=== PATIENT | female | born 1980 | race Two or more races ===

== ENCOUNTER 2023-03-25 17:19 | Emergency (ER) | payer MEDICAID, OTHER | END 2023-03-25 21:03 | disposition left against medical advice (07) | LOC: ER 17:19 | DX: H57.9 Unspecified disorder of eye and adnexa (principal); Z53.21 Procedure and treatment not carried out due to patient leaving prior to being seen by health care provider ==

== ENCOUNTER 2024-07-05 16:42 | Emergency (ER) | payer MEDICAID ==
[~2024-07-05] VITALS: Ht 167.6 cm; Wt 70.0 kg
[2024-07-05] MEDS: KETOROLAC TROMETH 30 MG/ML 1ML VIAL IM ONE (19:03)
[2024-07-05] MEDS ORDERED: CYCL-837 PO (21:57)
[2024-07-05 23:20] VITALS: BP 139/73; PULSE 85; RESP 18; TEMP 98.2; O2SAT 98
[2024-07-05] MEDS: diazePAM 5 MG TAB PO ONE (23:27)
== END 2024-07-05 23:38 | disposition home or self-care (01) ==
LOC: ER 16:42 → EDBD 16:42 → ER 23:38
DX: S32.019A Unspecified fracture of first lumbar vertebra, initial encounter for closed fracture (principal); Z88.6 Allergy status to analgesic agent; W18.09XA Striking against other object with subsequent fall, initial encounter; Y93.89 Activity, other specified; Y92.89 Other specified places as the place of occurrence of the external cause; Y99.8 Other external cause status
CPT/HCPCS: 72131; 96372; 99285; J1885

== ENCOUNTER 2025-10-07 02:00 | Emergency (ER) | payer MEDICAID ==
[~2025-10-07] VITALS: Ht 162.6 cm; Wt 87.4 kg
[~2025-10-07 02:00] MED LIST: CYCL-837 PO
--- NOTE | 2025-10-07 02:27 | ED.PDOC ---
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 Patient states she has been having vaginal bleeding since September 12, continuous and progressively worsened in the past 3 days, now associated with blood clots. Has not seen a band instrument maker regarding this issue. Denies being Past Medical History: Endometriosis Past Surgical History: , cervical procedure Social History: Denies hills: vag bleed. HPI: Poor Historian. REVIEW OF SYSTEMS: CONSTITUTIONAL: Denies acute: fever, diaphoresis, chills, generalized weakness. HEAD: Denies acute: headache, photophobia Eyes: Denies acute: Double vision, vision loss, eye pain, eye discharge. EARS: Denies acute: tinnitus, hearing loss, ear discharge, ear pain, THROAT: Denies acute: sore throat, swelling, difficulty swallowing , pain with swallo wing, change in voice. NECK: Denies acute: neck pain, neck swelling, stiff neck. HEART: Denies acute : chest pain, palpitations, LUNGS: Denies acute: SOB, wheezing, cough, hemoptysis ABDOMEN: Denies acute: abdominal pain, Nausea, Vomiting, diarrhea, melena , hematemesis, hematochezia SKIN: Denies acute: rash, redness, lesions, itchiness. EXTREMITIES: Denies acute: calf pain, numbness, tingling, weakness, denies pain in extremity. Denies acute: Low back pain. Neuro: Denies acute: focal neurological deficit, motor or sensory focal neurological deficit, tremors, seizure like activity, confusion, dizziness, change in mental status, loss of bowel or bladder function, cauda equina like symptoms. : Denies acute: dysuria, hematuria, flank pain, increase in urinary frequency. PSYCH: Denies acute: hallucination, suicidal ideation, homicidal ideation. FEMALE: Denies acute: foul odor, unusual discharge. PHYSICAL EXAM: General: -----mild---acute distress, awake and alert. Head: normocephalic, atraumatic. No raccoon's eyes, no jain sign. Neck: supple, trachea is midline, no swelling. Throat: Normal phonation. Eyes:, no erythema, no purulent discharge, no proptosis, no icterus. Heart: regular rate, regular rhythm, no significant murmur appreciated. Lungs: no apparent respiratory distress, Able to speak in full sentences. No wheezing, no rhonchi, no crackles. No stridors Clear to auscultation bilaterally. Abdomen: non tender to palpation, non distended, soft, no guarding, no rebound, + bowel sounds. Neuro: Awake, Alert, oriented to name, self, situation, follows commands GCS=15. Speech is normal. Skin: no petechia, no purpura, no cyanosis, non-pale, not jaundice. Lower extremities: --1/4 b/l - Pitting edema no deformity, no focal swelling, no calf TTP. Makes eye contact. moves all four extremities. Face: no apparent facial droop. Ambulating in the ED independently. ED COURSE: DISCLAIMER: This medical document was created using an electronic medical record system with voice recognition software and computerized dictation system. Although this document has been carefully reviewed, there might still be some phonetic and typographical errors. Occasional wrong-word or "sound-alike" substitutions may have occurred due to the inherent limitations of voice recognition software. These areas are purely typographical due to imperfections of the software programs and do not reflect any compromise in the patient's medical care. Please read the chart carefully and recognize, using context, where these substitutions have occurred. 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 Was a procedure done?: No Differential Diagnosis (INDUSTRIAL CAFETERIA MANAGER) Vaginal Bleeding: - Complete, - Incomplete, - Inevitable, - Missed, - Threatened, Abruptio Placentae, Blood Loss Anemia, Dysmenorrhea, Ectopic , Hormonal, Menorrhagia, Menometrorrhagia, Menstrual Bleeding, Myomatous Uterus, PID, Placenta Previa, Precipitous Hct, Trauma, UTI, Vaginitis, Other (Differential diagnosis includes but not limited to DU B, menorrhea, metromenorrhagia, neoplasm, coagulopathy,, trauma, miscarriage, placenta previa, placental abruption, ) X-Ray, Labs, Meds, VS Vital Signs Date Time Temp Pulse Resp B/P (MAP) Pulse Ox O2 Delivery O2 Flow Rate FiO2 10/07/25 04:27 98.1 75 18 134/83 (100) 100 98.1 10/07/25 02:01 97.4 82 16 122/78 97 97.4 Lab Test 10/07/25 05:20 10/07/25 02:54 10/07/25 02:44 Range/Units Hemoglobin 8.3 L 8.1 L 12.2-16.2 g/dL Hematocrit 26.4 L 27.1 L 36.0-46.0 % Urine Color Colorless Yellow Urine Clarity Clear Clear Urine pH 6.0 5.0-9.0 Urine Specific Jena 1.018 1.001-1.035 Urine Protein Negative Negative Urine Ketones Negative Negative Urine Blood 3+ H Negative /uL Urine Nitrite Negative Negative Urine Bilirubin Negative Negative Urine Urobilinogen Normal Negative mg/dL Urine Leukocyte Esterase Negative Negative /uL Urine RBC 359 0 - 4 /hpf Urine Microscopic WBC 2 0-5 /HPF Urine Squamous Epithelial Cells Few <5 /hpf Urine Bacteria None seen None Seen /hpf Urine Glucose Normal Normal mg/dL White Blood Count 8.4 4.4-10.8 10^3/uL Red Blood Count 4.25 4.0-5.20 10^6/uL Mean Corpuscular Volume 64.0 L 80.0-100.0 fL Mean Corpuscular Hemoglobin 19.2 L 28.0-32.0 pg Mean Corpuscular Hemoglobin Concent 30.0 L 32.0-36.0 g/dL Red Cell Distribution Width 20.2 H 11.8-14.3 % Platelet Count 282 140-450 10^3/uL Mean Platelet Volume 7.5 6.9-10.8 fL Neutrophils (%) (Auto) 60.3 37.0-80.0 % Lymphocytes (%) (Auto) 25.4 10.0-50.0 % Monocytes (%) (Auto) 9.1 0.0-12.0 % Eosinophils (%) (Auto) 4.2 0.0-7.0 % Basophils (%) (Auto) 1.0 0.0-2.0 % Neutrophils # (Auto) 5.1 1.6-8.6 10 ^3/uL Lymphocytes # (Auto) 2.1 0.4-5.4 10 ^3/uL Monocytes # (Auto) 0.8 0-1.3 10 ^3/uL Eosinophils # (Auto) 0.4 0-0.8 10 ^3/uL Basophils # (Auto) 0.1 0-0.2 10 ^3/uL Nucleated Red Blood Cells 0.0 % Platelet Estimate Adequate Hypochromasia (manual) Moderate Microcytosis Moderate Prothrombin Time 10.2 9.3-11.8 sec Prothrombin Time INR 0.96 0.9-1.15 Activated Partial Thromboplast Time 24.5 24.5-34.5 SEC Sodium Level 141 136-145 mmol/L Potassium Level 3.8 3.5-5.1 mmol/L Chloride Level 106 98-107 mmol/L Carbon Dioxide Level 28 20-31 mmol/L Anion Gap 7 5-15 Blood Urea Nitrogen 16 9-23 mg/dL Creatinine 0.83 0.550-1.02 mg/dL Glomerular Filtration Rate Calc 87 >90 mL/min BUN/Creatinine Ratio 19.3 10.0-20.0 Serum Glucose 89 74-106 mg/dL Calcium Level 8.9 8.7-10.4 mg/dL Total Bilirubin 0.3 0.2-1.0 mg/dL Aspartate Amino Transferase (AST) 13 13-40 U/L Alanine Aminotransferase (ALT) 22 7-40 U/L Alkaline Phosphatase 90 46-116 U/L Total Protein 6.8 5.7-8.2 g/dL Albumin 4.2 3.2-4.8 g/dL [address] [address] Ph: [phone] DIAGNOSTIC IMAGING Diagnostic Imaging Report : [id number] Signed PATIENT: ANUPAM HILLS ACCT: [id number] UNIT: [id number] : 1980 LOC: ER ROOM / BED: / AGE / SEX: 45 / F ADM STATUS: REG ER SERVICE 0213 ORDERING PHYSICIAN: ANDRESSA CARRIZALES DO PROCEDURE(s): PELUS - PELVIC REASON: vag bleed ORDER NUMBER(s): [id number], ACCESSION NUMBER(s): [id number] INDICATION: vag bleed TECHNIQUE: Multiple real-time grayscale transabdominal sonographic images along with color and duplex Doppler of the uterus and ovaries were obtained. COMPARISON: None FINDINGS: The uterus measures 10.4 x 5.3 x 6.8 cm. The endometrial stripe measures 0.5 cm. Right ovary measures 3.9 x 3.6 x 3.5 cm with normal Doppler color flow. Simple appearing cyst / follicle measuring 2.0 cm. Left ovary measures 0.1 x 1.3 x 2.1 cm with normal Doppler color flow IMPRESSION: Grossly unremarkable pelvic ultrasound. ATED BY: AWAIS LARA MD DICTATED DATE/TIME: 10/07/25244 SIGNED BY: AWAIS LARA MD SIGNED DATE/TIME: 10/07/25244 CC: Time of 1ST Reevaluation: 02:24 Reevaluation 1ST: Unchanged Patient Education/Counseling: Diagnosis, Treatment Family Education/Counseling: No Family Present Comments MDM: patient presented with the above HPI.------workup was initiated. patient was found with the above mentioned diagnosis. the following medications were ordered: please refer to order lists of meds and tests obtained by myself Dr. Carrizales. Patient ED course and VS have been stabilized. Patient has been reassessed in the ED and remained in a stable condition. Pertinent incidental findings were discussed with the patient and/or family. Patient/family voices understanding and is agreeable with plan. Patient has been observed in the ED adequate length of time to insure im provement/stability. Escalation of care considered: Consideration of escalation to observation or admission Serial H&Hs were obtained after fluid resuscitation. Patient's hemoglobin level is stable does not meet criteria for transfusion yet. Patient was DISCHARGED home in a stable condition. All the reports of any imaging studies that were ordered by myself were reviewed by myself. Departure 1 Departure Time of Disposition: 05:46 Impression: Primary Impression: Dysfunctional uterine bleeding Additional Impressions: Vaginal bleeding Anemia Disposition: 01 HOME / SELF CARE / HOMELESS Condition: Stable Additional Instructions: Additional instructions: Please read all instructions provided in this packet carefully. You MUST follow-up with your primary care/family doctor in 1 to 2 days. If you are unable to see your primary care/family doctor, please return to our emergency room for re-assessment and re-evaluation in 1 to 2 days. Return to the emergency room here in our facility or to the nearest ER [facility] if your symptoms change or worsen. CONSULTATIONS: you MUST Follow-up for consultation as soon as possible with: Dr.-OB Murillo in 1-2 days. Please call for appointment. You MUST call the consultants office yourself to make an appointment. You may need to arrange that through your insurance and/or your primary/family doctor. If you are unable to see the customer care consultant in 1 to 2 days, you must return to our emergency room (or any other ER of your choice) for re-assessment and re- evaluation. Adequate fluid hydration. Although you have been discharged from the Emergency Department, this does not mean that you have a "clean bill of health". No definitive diagnosis for your symptoms has been made today. It is possible that you are in the process of developing a serious illness. This is why you must return to the ED without fail if any new or worsening symptoms develop. Take daily iron supplements [id number]. Repeat CBC in 48-72 hours. Below is a copy of your radiological report for follow up: [place] [address] Ph: [phone] DIAGNOSTIC IMAGING Diagnostic Imaging Report : [id number] Signed PATIENT: ANUPAM HILLS ACCT: [id number] UNIT: [id number] : 1980 LOC: ER ROOM / BED: / AGE / SEX: 45 / F ADM STATUS: REG ER SERVICE 0213 ORDERING PHYSICIAN: ANDRESSA CARRIZALES DO PROCEDURE(s): PELUS - PELVIC REASON: vag bleed ORDER NUMBER(s): [id number], ACCESSION NUMBER(s): [id number] INDICATION: vag bleed TECHNIQUE: Multiple real-time grayscale transabdominal sonographic images along with color and duplex Doppler of the uterus and ovaries were obtained. COMPARISON: None FINDINGS: The uterus measures 10.4 x 5.3 x 6.8 cm. The endometrial stripe measures 0.5 cm. Right ovary measures 3.9 x 3.6 x 3.5 cm with normal Doppler color flow. Simple appearing cyst / follicle measuring 2.0 cm. Left ovary measures 0.1 x 1.3 x 2.1 cm with normal Doppler color flow IMPRESSION: Grossly unremarkable pelvic ultrasound. ATED BY: AWAIS LARA MD DICTATED DATE/TIME: 10/07/25244 SIGNED BY: AWAIS LARA MD SIGNED DATE/TIME: 10/07/25244 CC: Discharged With: Self Critical Care Note Critical Care Time?: No I personally scribed for ANDRESSA CARRIZALES DO ([email or web address]) on 10/07/25 at 02:27. Electronically submitted by Austin Davis ([facility]). I personally scribed for ANDRESSA CARRIZALES DO ([email or web address]) on 10/07/25 at 03:23. Electronically submitted by Austin Davis ([email or web address]). ANDRESSA CARRIZALES DO Oct 07, 2025 02:27
--- NOTE | 2025-10-07 02:48 | DVH ---
INDICATION: vag bleed TECHNIQUE: Multiple real-time grayscale transabdominal sonographic images along with color and duplex Doppler of the uterus and ovaries were obtained. COMPARISON: None FINDINGS: The uterus measures 10.4 x 5.3 x 6.8 cm. The endometrial stripe measures 0.5 cm. Right ovary measures 3.9 x 3.6 x 3.5 cm with normal Doppler color flow. Simple appearing cyst / follicle measuring 2.0 cm. Left ovary measures 0.1 x 1.3 x 2.1 cm with normal Doppler color flow IMPRESSION: Grossly unremarkable pelvic ultrasound.
[2025-10-07 02:55] LABS: Hemoglobin 8.1 g/dL (12.2-16.2)
[2025-10-07 02:57] LABS: Hematocrit 27.1 % (36.0-46.0); Mean Corpuscular Hemoglobin 19.2 pg (28.0-32.0); Mean Corpuscular Volume 64.0 fL (80.0-100.0); Nucleated Red Blood Cells % 0.0 %
[2025-10-07] MEDS: SODIUM CHLORIDE 0.9% 1,000 ML IV ONE (03:00)
[2025-10-07 03:01] LABS: Urine Protein, UAD Negative (Negative)
[2025-10-07 03:09] LABS: Alanine Aminotransferase 22 U/L (7-40); Albumin 4.2 g/dL (3.2-4.8); Alkaline Phosphatase 90 U/L (46-116); Anion Gap 7 (5-15); BUN/Creatinine Ratio 19.3 (10.0-20.0); Blood Urea Nitrogen 16 mg/dL (9-23); Calcium 8.9 mg/dL (8.7-10.4); Carbon Dioxide 28 mmol/L (20-31); Chloride 106 mmol/L (98-107); Glucose 89 mg/dL (74-106); Potassium 3.8 mmol/L (3.5-5.1); Sodium 141 mmol/L (136-145); Total Protein 6.8 g/dL (5.7-8.2)
[2025-10-07 03:10] LABS: Bilirubin, Total 0.3 mg/dL (0.2-1.0); INR 0.96 (0.9-1.15); Partial Thromboplastin Time 24.5 SEC (24.5-34.5); Prothrombin Time 10.2 sec (9.3-11.8)
[2025-10-07 04:27] VITALS: BP 134/83; PULSE 75; RESP 18; TEMP 98.1; O2SAT 100
[2025-10-07 05:39] LABS: Hematocrit 26.4 % (36.0-46.0); Hemoglobin 8.3 g/dL (12.2-16.2)
== END 2025-10-07 06:11 | disposition home or self-care (01) ==
LOC: ER 02:00
DX: N93.8 Other specified abnormal uterine and vaginal bleeding (principal); D64.9 Anemia, unspecified; Z86.018 Personal history of other benign neoplasm; Z87.440 Personal history of urinary (tract) infections; Z98.890 Other specified postprocedural states; Z79.899 Other long term (current) drug therapy; Z87.59 Personal history of other complications of pregnancy, childbirth and the puerperium; Z88.5 Allergy status to narcotic agent
CPT/HCPCS: 36415; 76856; 80053; 81001; 85014; 85018; 85025; 85610; 85730; 86850; 86900; 86901; 96360; 99284; J7030

== ENCOUNTER 2025-10-09 02:25 | Emergency (ER) | payer MEDICAID ==
[~2025-10-09] VITALS: Ht 162.6 cm; Wt 88.7 kg
[2025-10-09] MEDS ORDERED: MEDR5TAB28 PO (02:45)
--- NOTE | 2025-10-09 02:53 | ED.PDOC ---
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 Patient endorses on ongoing bleeding since initial, unprovoked onset on 09/12/2025. She reports bleeding getting heavier, significantly, following 10/03/2025. She was evaluated for symptoms on 10/07/2025 at [facility]. Patient's workup done then were benign, with the exception of her being anemic but not enough to warrant blood transfusion. Significant history of endometriosis and C-sections. Family history of diabetes and cancer. Patient denies any social history. She denies any abdominal pain, urinary problems, lightheadedness, weakness, or further acute symptoms. Chief Complaint: Vaginal Bleed Time Seen by MD: 02:30 Reviewed Notes: Nurses Notes, Medications, Allergies Allergies: Coded Allergies: Codeine (Verified Allergy, Unknown, 07/05/24) Penicillins (Verified Allergy, Unknown, 10/09/25) Home Meds Active Scripts Medroxyprogesterone Acetate (PROVERA) 5 Mg Tab, 2 TAB PO DAILY for 10 Days, #20 TAB 11 Refills Prov:MOLLY CORONADO MD 10/09/25 Cyclobenzaprine Hcl (Cyclobenzaprine Hcl) 5 Mg Tab, 1 TAB PO TID PRN, #30 TAB Prov:AV BLAIR 07/05/24 Information Source: Patient Mode of Arrival: Ambulatory Timing: Weeks Prehospital treatment: Other (See HPI) Severity: Moderate Vaginal Lesions: None Bleeding Quality: Bright Red Vaginal Mass: None Onset Of Mass/Bleeding: Spontaneous Associated Signs and Symptoms: None Past Medical History PAST MEDICAL HISTORY: Denies 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 Family History Family History: No family hx of Heart maicol, No family hx of HTN, No family hx ofKidney maicol, No family hx of Liver maicol, No family hx of Lung maicol, No family hx of Stroke, Family hx of DM, Family hx of Cancer Social History Smoker: Non-Smoker Alcohol: Denies ETOH Use Drugs: Denies Drug Use Lives In: Home Constitutional: denies: chills, diaphoresis, fatigue, fever, malaise, sweats, weakness, others EENTM: denies: blurred vision, double vision, ear bleeding, ear discharge, ear drainage, ear pain, ear ringing, eye pain, eye redness, hearing loss, mouth pain, mouth swelling, nasal discharge, nose bleeding, nose congestion, nose pain, photophobia, tearing, throat pain, throat swelling, voice changes, others Respiratory: denies: cough, hemoptysis, orthopnea, SOB at rest, shortness of breath, SOB with excertion, stridor, wheezing, others Cardiovascular: denies: chest pain, dizzy spells, diaphoresis, Dyspnea on exertion, edema, irregular heart beat, left arm pain, lightheadedness, palpitations, PND, syncope, others Gastrointestinal: denies: abdomen distended, abdominal pain, blood streaked bowels, constipated, diarrhea, dysphagia, difficulty swallowing, hematemesis, melena, nausea, poor appetite, poor fluid intake, rectal bleeding, rectal pain, vomiting, others Genitourinary: reports: abnormal vagina bleeding; denies: burning, dyspareunia, dysuria, flank pain, frequency, hematuria, incontinence, pain, , vagina discharge, urgency, others Neurological: denies: dizziness, fainting, headache, left sided numbness, left sided weakness, numbness, paresthesia, pre-existing deficit, right sided numbness, right sided weakness, seizure, speech problems, tingling, tremors, weakness, others Musculoskeletal: denies: back pain, gout, joint pain, joint swelling, muscle pain, muscle stiffness, neck pain, others Integumetry: denies: bruises, change in color, change in hair/nails, dryness, laceration, lesions, lumps, rash, wounds, others Allergic/Immunocompromised: denies: Difficulty Healing, Frequent Infections, Hives, Itching, others Hematologic/Lymphatic: denies: anemia, blood clots, easy bleeding, easy bruising, swollen glands, others Endocrine: denies: excessive hunger, excessive sweating, excessive thirst, excessive urination, flushing, intolerance to cold, intolerance to heat, unexplained weight gain, unexplained weight loss, others Psychiatric: denies: anxiety, bipolar disorder, depression, hopeless, panic disorder, schizophrenia, sleepless, suicidal, others All Other Systems: Reviewed and Negative Physical Exam General Appearance: Moderate Distress HEENT: Pale Conjuntivae (L), Pale Conjuntivae (R), Pharynx Normal, TMs Normal Neck: Full Range of Motion, Non-Tender, Normal, Normal Inspection Respiratory: Chest Non-Tender, Lungs Clear, No Accessory Muscle Use, No Respiratory Distress, Normal Breath Sounds Cardiovascular: No Edema, No JVD, No Murmur, No Gallop, Normal Peripheral Pulses, Regular Rate/Rhythm Breast Exam: Deferred Gastrointestinal: No Organomegaly, Non Tender, No Pulsatile Mass, Normal Bowel Sounds, Soft Genitalia: Deferred Pelvic: Deferred Rectal: Deferred Extremities: No calf tenderness, Normal capillary refill, Normal inspection, Normal range of motion, Non-tender, No pedal edema Musculoskeletal : Apperance: Normal Neurologic: Alert, post acute care nurse II-XII nml as Tested, No Motor Deficits, Normal Affect, Normal Mood, No Sensory Deficits Cerebellar Function: Normal Reflexes: Normal Skin: Dry, Normal Color, Warm Lymphatic: No Adenopathy Was a procedure done? Was a procedure done?: No Differential Diagnosis (BAND SHOVER) Vaginal Bleeding: Dysmenorrhea, Ectopic , Hormonal, Menorrhagia, Menometrorrhagia, Menstrual Bleeding, PID, UTI, Vaginitis Mass / Lesion: N/A Vaginal Discharge: N/A X-Ray, Labs, Meds, VS Vital Signs Date Time Temp Pulse Resp B/P (MAP) Pulse Ox O2 Delivery O2 Flow Rate FiO2 10/09/25 04:06 75 14 96 Room Air* 0 21 10/09/25 03:23 98.2 74 18 105/68 (80) 97 98.2 10/09/25 02:27 97.8 79 16 136/89 98 97.8 Lab Test 10/09/25 02:50 Range/Units White Blood Count 7.4 4.4-10.8 10^3/uL Red Blood Count 3.58 L 4.0-5.20 10^6/uL Hemoglobin 7.2 L 12.2-16.2 g/dL Hematocrit 23.5 #L 36.0-46.0 % Mean Corpuscular Volume 65.6 L 80.0-100.0 fL Mean Corpuscular Hemoglobin 20.0 L 28.0-32.0 pg Mean Corpuscular Hemoglobin Concent 30.6 L 32.0-36.0 g/dL Red Cell Distribution Width 20.6 H 11.8-14.3 % Platelet Count 252 140-450 10^3/uL Mean Platelet Volume 7.7 6.9-10.8 fL Neutrophils (%) (Auto) 59.4 37.0-80.0 % Lymphocytes (%) (Auto) 27.6 10.0-50.0 % Monocytes (%) (Auto) 7.7 0.0-12.0 % Eosinophils (%) (Auto) 4.5 0.0-7.0 % Basophils (%) (Auto) 0.8 0.0-2.0 % Neutrophils # (Auto) 4.4 1.6-8.6 10 ^3/uL Lymphocytes # (Auto) 2.1 0.4-5.4 10 ^3/uL Monocytes # (Auto) 0.6 0-1.3 10 ^3/uL Eosinophils # (Auto) 0.3 0-0.8 10 ^3/uL Basophils # (Auto) 0.1 0-0.2 10 ^3/uL Nucleated Red Blood Cells 0.2 % Prothrombin Time 10.4 9.3-11.8 sec Prothrombin Time INR 0.98 0.9-1.15 Activated Partial Thromboplast Time 24.5 24.5-34.5 SEC The patient's hemoglobin is 7.2 and hematocrit 23.5 We are typed and screening the patient and the patient is being transfused with a unit of packed red blood cells We did review the ultrasound from yesterday of the pelvis and it is negative Following the transfusion, we will contact Dr. Magallon for further guidance. The patient understands and agrees with the management The patient will be signed out to Dr. Le Time of 1ST Reevaluation: 03:00 Reevaluation 1ST: Unchanged Patient Education/Counseling: Diagnosis, Treatment, Prognosis Family Education/Counseling: No Family Present Departure 1 Departure Time of Disposition: 04:12 Impression: Primary Impression: Dysfunctional uterine bleeding Additional Impression: Anemia Qualified Codes: D64.9 - Anemia, unspecified Disposition: 30 STILL A PATIENT Condition: Fair e-Prescriptions Medroxyprogesterone Acetate (PROVERA) 5 Mg Tab 2 TAB PO DAILY for 10 Days, #20 TAB 11 Refills Prov: MOLLY CORONADO MD 10/09/25 Critical Care Note Critical Care Time?: No Stability Stability form required: No Heart Score Heart Score: Heart Score Response (Comments) Value History N/A 0 EKG N/A 0 Age N/A 0 Risk Factors N/A 0 Troponin N/A 0 Total 0 I personally scribed for MOLLY CORONADO MD ([email or web address]) on 10/09/25 at 02:53. Electronically submitted by Sandoval Villa ([email or web address]). I personally scribed for MOLLY CORONADO MD ([email or web address]) on 10/09/25 at 03:01. Electronically submitted by Sandoval Villa ([email or web address]). MOLLY CORONADO MD Oct 09, 2025 02:53
[2025-10-09 03:20] LABS: Mean Corpuscular Volume 65.6 fL (80.0-100.0)
[2025-10-09 03:22] LABS: Hematocrit 23.5 % (36.0-46.0); Hemoglobin 7.2 g/dL (12.2-16.2); Mean Corpuscular Hemoglobin 20.0 pg (28.0-32.0); Nucleated Red Blood Cells % 0.2 %
[2025-10-09 03:48] LABS: INR 0.98 (0.9-1.15); Partial Thromboplastin Time 24.5 SEC (24.5-34.5); Prothrombin Time 10.4 sec (9.3-11.8)
[2025-10-09 04:06] VITALS: PULSE 75; RESP 14; O2SAT 96
[2025-10-09 06:26] VITALS: BP 132/70; PULSE 80; RESP 12; TEMP 98
[2025-10-09 06:48] VITALS: BP 131/73; PULSE 84; RESP 11; TEMP 98
[2025-10-09] MEDS: ACETAMINOPHEN 325 MG TAB PO ONE (07:30)
[2025-10-09 08:57] VITALS: BP 120/67; PULSE 69; RESP 16; TEMP 98.3
[2025-10-09 09:00] VITALS: TEMP 98.3
[2025-10-09 09:43] LABS: Hematocrit 28.1 % (36.0-46.0); Hemoglobin 8.8 g/dL (12.2-16.2); Mean Corpuscular Hemoglobin 21.1 pg (28.0-32.0)
[2025-10-09 09:44] LABS: Mean Corpuscular Volume 67.4 fL (80.0-100.0); Nucleated Red Blood Cells % 0.2 %
[2025-10-09 10:00] VITALS: BP 114/72; PULSE 75; RESP 17; O2SAT 97
== END 2025-10-09 10:30 | disposition home or self-care (01) ==
LOC: ER 02:25
DX: N93.8 Other specified abnormal uterine and vaginal bleeding (principal); D64.9 Anemia, unspecified; D69.6 Thrombocytopenia, unspecified; Z88.0 Allergy status to penicillin; Z88.5 Allergy status to narcotic agent; Z79.899 Other long term (current) drug therapy; Z98.890 Other specified postprocedural states
CPT/HCPCS: 36415; 36430; 85025; 85610; 85730; 86850; 86900; 86901; 86920; 99285; P9016